=== PATIENT | female | born 1995 | race African-American/Black ===

== ENCOUNTER 2024-06-05 18:10 | Emergency (ER) | payer MEDICAID, SELFPAY ==
[2024-06-05 19:09] VITALS: BP 153/88; PULSE 98; RESP 20; TEMP 36.9; O2SAT 100; BMI 31.1
--- NOTE | 2024-06-05 19:32 | EDNOTE_ITS ---
ED Dental RME/HPI General Chief complaint: Dental/Oral/Throat Stated complaint: TOOTHACHE ON UPPER LEFT SIDE Time Seen by Provider: 06/05/24 19:16 Source: patient Arrival date/time: 06/05/24 18:10 29-year-old female presents emergency department complaining of infected tooth that is been ongoing for 2 weeks. Patient denies any fever, chills, cough, sore throat, earache, or any other associated symptom. Mode of arrival: ambulatory Limitations: no limitations Related Data Previous Rx's ?Medication ?Instructions ?Recorded amoxicillin 875 mg-potassium 1 tab PO BID 7 days #14 tabs 06/05/24 clavulanate 125 mg tablet ibuprofen 600 mg tablet 600 mg PO Q8H PRN pain #20 tabs 06/05/24 Allergies Allergy/AdvReac Type Severity Reaction Status Date / Time No Known Allergies Allergy Verified 06/05/24 18:13 Review of Systems Review of Systems Systems Reviewed: All systems reviewed, normal except as documented Constitutional Constitutional: Reports system reviewed and no additional complaints, except as documented, Denies body ache(s), Denies chills and Denies fever(s) Eyes Eyes: Reports system reviewed and no additional complaints, except as documented and Denies change in vision ENT Ears, Nose, Mouth, and Throat: Reports system reviewed and no additional complaints, except as documented, Denies disequilibrium, Denies dizziness, Denies sore throat, Denies vertigo and Reports other (Tooth pain) Cardiovascular Cardiovascular: Reports system reviewed and no additional complaints, except as documented, Denies chest pain and Denies dyspnea Respiratory Respiratory: Reports system reviewed and no additional complaints, except as documented, Denies chest congestion, Denies cough and Denies dyspnea Gastrointestinal Gastrointestinal: Reports system reviewed and no additional complaints, except as documented, Denies abdominal pain, Denies nausea and Denies vomiting Musculoskeletal Musculoskeletal: Reports system reviewed and no additional complaints, except as documented, Denies abnormal gait and Denies arthralgias Integumentary/Breasts Skin/Breast: Reports system reviewed and no additional complaints, except as documented, Denies erythema, Denies rash and Denies wounds Neurologic Neurologic: Reports system reviewed and no additional complaints, except as documented, Denies abnormal gait, Denies disequilibrium, Denies dizziness and Denies vertigo Past Medical History Past Medical History CARDIAC: Negative Cardiac Disorders or Congestive Heart Failure RESPIRATORY: Negative Chronic Obstructive Pulmonary Disease (COPD) or Asthma GENITOURINARY: Negative Renal Disease REPRODUCTIVE: Positive Previous Pregnancies ENDOCRINE: Negative Diabetes Mellitus Type 1 or Diabetes Mellitus Type 2 HEMATOLOGIC: Positive Anemia; Negative Sickle Cell Disease PSYCHO/SOCIAL: Positive Psychiatric Problems Family History FAMILY HISTORY: Positive Family Cardiac Disorders and Family Cancer; Negative Family Respiratory Disorders Surgical History SURGICAL: Negative Section Social History SMOKING STATUS: Current every day smoker SUBSTANCE USE: marijuana (vape) ED Exam General Limitations: Present no limitations General appearance: Present alert and in no apparent distress Head Head exam: Present atraumatic Eye Eye exam: Present normal appearance, PERRL and EOMI ENT ENT exam: Present normal exam, normal oropharynx and mucous membranes moist Expanded ENT Exam Teeth exam: Present dental caries and gingival swelling Neck Neck exam: Present normal inspection, full ROM and trachea midline Chest Chest inspection: Present normal inspection and symmetric chest wall rise Respiratory Respiratory exam: Present normal lung sounds bilaterally Cardiovascular Cardiovascular exam: Present regular rate, normal rhythm and normal heart sounds Abdominal Exam Abdominal exam: Present soft and normal bowel sounds Extremities Exam Extremities exam: Present normal inspection and full ROM Back Exam Back exam: Present normal inspection and full ROM Neurological Exam Neurological exam: Present alert, oriented X3 and CN II-XII intact Psychiatric Psychiatric exam: Present normal affect and normal mood Skin Skin exam: Present warm, dry, intact and normal color Course Quality Measures none Orders Category Date Time Status Amoxicillin/Pot Clav 875 [Augmentin 875] Med 06/05/24 19:34 Discontinued 1 tab PO X1 ONE Vital Signs Vital signs: Vital Signs Temperature 98.5 F 06/05/24 19:09 Pulse Rate 98 06/05/24 19:09 Respiratory Rate 20 06/05/24 19:09 Blood Pressure 153/88 H 06/05/24 19:09 Pulse Oximetry (%) 100 06/05/24 19:09 Oxygen Delivery Method Room Air 06/05/24 19:09 100% room air within normal limits Dental / Oral MDM Narrative MDM Narrative:: 29-year-old female presents emergency department complaining of infected tooth that is been ongoing for 2 weeks. Patient denies any fever, chills, cough, sore throat, earache, or any other associated symptom. ENT exam dental care with localized gingival swelling left lateral upper tooth. Oropharynx no erythema or tonsillomegaly observed. Patient appears nontoxic and hemodynamic stable. Patient discharged on oral Augmentin and instructed to follow-up with dentist upon discharge. Patient data External records reviewed:: [facility] previous records Clinical information provided by:: patient Social determinants that could affect healthcare access:: none Patient has the following chronic illnesses:: None How is presenting disease/condition affected by chronic disease/condition?: no chronic disease Evaluation data The following diagnostics were reviewed and interpreted by me:: other (specify) (N/A) Lab and/or radiology exams considered but not ordered:: N/A Interpretation Summary: N/A Medications / Prescriptions Medications or Prescriptions considered but not ordered:: Ordered Medication administrations:: Medication Administration History Discontinued Medications Amoxicillin/Clavulanate Potassium (Amoxicillin/Pot Clav 875 Tablet) 1 tab PO X1 ONE Stop: 06/05/24 19:35 Last Admin: 06/05/24 19:39 Dose: 1 tab Documented By: SCAR Comments: unable to scan Given Consultations Consultation(s) initiated? (list below): No Diagnosis Dental Differential Diagnosis: gingival abscess, dental caries, toothache, dental abscess and fracture of tooth Most likely diagnosis given after review of the tests above:: Infected tooth Admission Indicated Admission indicated?: not indicated Admission Request Was there a request for admission?: No Disposition Plan Disposition Plan: Discharge Discharge Attestation Discharge Attestation: The patient and all family members were given an opportunity to ask questions and understood the discharge instructions. Discharge instructions specifically effects, indications for sooner follow up or return to the emergency department, and the expected course of current diagnosis. Patient condition: Stable Discharge Plan Plan Patient Disposition: HOME (Self Care) Disposition Comment: Stable Prescriptions/Referrals Prescriptions/Med Rec: New amoxicillin-pot clavulanate 875-125 mg tablet 1 tab PO BID 7 Days Qty: 14 0RF ibuprofen 600 mg tablet 600 mg PO Q8H PRN (Reason: pain) Qty: 20 0RF Problem List Clinical Impression: Infected tooth Patient/Caregiver Discharge Instructions Discharge Activity: activity as tolerated Education Materials: ED Tooth Abscess Additional Instructions: Take medication as prescribed. Take Tylenol or ibuprofen as needed for pain. Follow-up with dentist in 24 to 48 hours. Return to emergency department for any worsening symptoms or as needed. Print Language: [place] Stand Alone Forms: Kelli Award Info., Patient Portal Info Letter PA/JOANNA Supervising Physician MAEVE/JOANNA Supervising Physician: Dr. Reid
[2024-06-05] MEDS: AMOXICILLIN/POT CLAV 875 TABLET 1 TAB PO (19:39)
== END 2024-06-05 19:46 | disposition home or self-care (01) ==
LOC: SERX 19:44
PROVIDERS: Emergency Provider Emergency Medicine
DX: K04.7 Periapical abscess without sinus (principal)
CPT/HCPCS: 99282; A9270

== ENCOUNTER 2024-07-07 01:48 | Emergency (ER) | payer MEDICAID, SELFPAY ==
[2024-07-07 01:48] VITALS: BMI 31.3
--- NOTE | 2024-07-07 01:57 | EDNOTE_ITS ---
Upper Respiratory Inf. RME/HPI General Chief Complaint: Flu Like Symptoms Stated Complaint: FLU/ CONGESTION Time Seen by Provider: 07/07/24 01:52 Source: patient, RN notes reviewed and old records reviewed Arrival date/time: 07/07/24 01:48 Mode of arrival: ambulatory Limitations: no limitations RME / HPI RME / HPI Narrative: 29yof presents to ED for congestion, cough and body aches that initiated yesterday. Son currently has similar symptoms. No fever, shortness of breath, chest pain, nausea/vomiting or dizziness reported. 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 Previous Rx's ?Medication ?Instructions ?Recorded ibuprofen 600 mg tablet 600 mg PO Q8H PRN pain #20 tabs 06/05/24 benzonatate 200 mg capsule 200 mg PO TID PRN cough #30 caps 07/07/24 dextromethorphan-guaifenesin ER 60 1 tab PO Q12H PRN congestion/cough 07/07/24 mg-1,200 mg tab,extend #30 tabs release,12hr (Mucinex DM) fluticasone propionate 50 2 spray intranasal QDAY PRN nasal 07/07/24 mcg/actuation nasal congestion #16 grams spray,suspension (Flonase Allergy Relief) ibuprofen 600 mg tablet 600 mg PO Q6H PRN fever or pain 07/07/24 #30 tabs Allergies Allergy/AdvReac Type Severity Reaction Status Date / Time No Known Allergies Allergy Verified 06/05/24 18:13 Review of Systems Review of Systems Systems Reviewed: All systems reviewed, normal except as documented Constitutional Constitutional: Denies chills and Denies fever(s) ENT Ears, Nose, Mouth, and Throat: Denies dizziness and Reports nasal congestion Cardiovascular Cardiovascular: Denies chest pain and Denies dyspnea Respiratory Respiratory: Reports cough and Denies dyspnea Gastrointestinal Gastrointestinal: Denies nausea and Denies vomiting Musculoskeletal Musculoskeletal: Reports myalgias Neurologic Neurologic: Denies dizziness Past Medical History Past Medical History GASTROINTESTINAL: Positive Obesity Surgical History OTHER SURGICAL HX: Unilateral fallopian tube removal for ectopic in 2016. Social History SMOKING STATUS: Current some day smoker SUBSTANCE USE: does not use ALCOHOL: Never ED Exam General Limitations: Present no limitations General appearance: Present alert and in no apparent distress Head Head exam: Present atraumatic and normocephalic Eye Eye exam: Present normal appearance, PERRL and EOMI ENT ENT exam: Present normal oropharynx, mucous membranes moist, TM's normal bilaterally and other (Mild UAC) Neck Neck exam: Present normal inspection and full ROM Chest Chest inspection: Present normal inspection and symmetric chest wall rise Respiratory Respiratory exam: Present normal lung sounds bilaterally; Absent respiratory distress Cardiovascular Cardiovascular exam: Present regular rate and normal rhythm Extremities Exam Extremities exam: Present normal inspection and full ROM Neurological Exam Neurological exam: Present alert and oriented X3 Psychiatric Psychiatric exam: Present normal affect and normal mood Skin Skin exam: Present warm, dry, intact and normal color Course Quality Measures none Orders Category Date Time Status Bedside COVID-19 Antigen Test NOW Care 07/07/24 02:07 Completed Bedside Influenza A&B Antigen Test NOW Care 07/07/24 02:07 Completed Vital Signs Vital signs: Vital Signs Temperature 98.4 F 07/07/24 02:05 Pulse Rate 94 07/07/24 02:05 Respiratory Rate 17 07/07/24 02:05 Blood Pressure 137/91 H 07/07/24 02:05 Pulse Oximetry (%) 98 07/07/24 02:05 Oxygen Delivery Method Room Air 07/07/24 02:05 Upper Respiratory Infection MDM Narrative MDM Narrative:: 29yof presents to ED for congestion, cough and body aches that initiated yesterday. Son currently has similar symptoms. No fever, shortness of breath, chest pain, nausea/vomiting or dizziness reported. 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 Patient is nontoxic-appearing, afebrile, vitals are stable. No evidence respiratory distress or hypoxia. Suspect viral etiology of symptoms. Encourage rest, fluids, symptomatic treatment, fever management prn. Stable for discharge, RTED precautions given Patient data External records reviewed:: [facility] previous records (06/05/2024 ED visit for tooth infection) Clinical information provided by:: patient Social determinants that could affect healthcare access:: other (specify) (Poor access to healthcare) Patient has the following chronic illnesses:: Obesity How is presenting disease/condition affected by chronic disease/condition?: uneffected by Evaluation data The following diagnostics were reviewed and interpreted by me:: lab results Lab and/or radiology exams considered but not ordered:: CXR: Lungs clear, no respiratory distress or hypoxia Interpretation Summary: Negative COVID/flu Medications / Prescriptions Medications or Prescriptions considered but not ordered:: No antibiotics or antivirals recommended at this time Medication administrations:: None Consultations Consultation(s) initiated? (list below): No Diagnosis Upper Respiratory Differential Diagnosis: other (URI, viral illness, COVID, flu, bronchitis, pneumonia) Most likely diagnosis given after review of the tests above:: URI Admission Indicated Admission indicated?: not indicated Admission Request Was there a request for admission?: No Disposition Plan Disposition Plan: Discharge Discharge Attestation Discharge Attestation: The patient and all family members were given an opportunity to ask questions and understood the discharge instructions. Discharge instructions specifically effects, indications for sooner follow up or return to the emergency department, and the expected course of current diagnosis. Patient condition: Stable Discharge Plan Plan Patient Disposition: HOME (Self Care) Patient condition on transfer: Stable Prescriptions/Referrals Prescriptions/Med Rec: New ibuprofen 600 mg tablet 600 mg PO Q6H PRN (Reason: fever or pain) Qty: 30 0RF dextromethorphan-guaifenesin [Mucinex DM] 60-1,200 mg tablet extended release 12 hr 1 tab PO Q12H PRN (Reason: congestion/cough) Qty: 30 0RF fluticasone propionate [Flonase Allergy Relief] 50 mcg/actuation spray,suspension 2 spray intranasal QDAY PRN (Reason: nasal congestion) Qty: 16 0RF Rx Instructions: administer into each nostril benzonatate 200 mg capsule 200 mg PO TID PRN (Reason: cough) Qty: 30 0RF No Action ibuprofen 600 mg tablet 600 mg PO Q8H PRN (Reason: pain) Qty: 20 0RF Referrals: Temporary Provider,ED [Physician] - In 1 week Problem List Clinical Impression: URI (upper respiratory infection), Viral illness Patient/Caregiver Discharge Instructions Education Materials: ED URI, Viral, No Abx (Adult) Print Language: Emir[place] Stand Alone Forms: Kelli Award Info., Patient Portal Info Letter PA/COMMUNITY DEVELOPMENT SPECIALIST Supervising Physician PA/COMMUNITY DEVELOPMENT SPECIALIST Supervising Physician: Asa
[2024-07-07 02:05] VITALS: BP 137/91; PULSE 94; RESP 17; TEMP 36.9; O2SAT 98
== END 2024-07-07 03:59 | disposition home or self-care (01) ==
PROVIDERS: Emergency Provider Emergency Medicine
DX: J06.9 Acute upper respiratory infection, unspecified (principal)
CPT/HCPCS: 99283

== ENCOUNTER 2024-08-03 20:16 | Emergency (ER) | payer MEDICAID, SELFPAY ==
[2024-08-03 20:17] VITALS: BMI 31.6
[2024-08-03 21:15] VITALS: BP 143/87; PULSE 90; RESP 18; TEMP 37.1; O2SAT 99
--- NOTE | 2024-08-03 21:26 | EDNOTE_ITS ---
ED Ear RME/HPI General Chief complaint: Ear Stated complaint: RIGHT EAR PAIN Time Seen by Provider: 08/03/24 21:23 Arrival date/time: 08/03/24 20:16 29F with no significant PMH presents to ED with several days of R ear pain. Limitations: no limitations Related Data Previous Rx's ?Medication ?Instructions ?Recorded ibuprofen 600 mg tablet 600 mg PO Q8H PRN pain #20 t abs 06/05/24 benzonatate 200 mg capsule 200 mg PO TID PRN cough #30 caps 07/07/24 dextromethorphan-guaifenesin ER 60 1 tab PO Q12H PRN c ongestion/cough 07/07/24 mg-1,200 mg tab,extend #30 tabs release,12hr (Mucinex DM) fluticasone propionate 50 2 spray intranasal QDAY PRN nasal 07/07/24 mcg/actuation nasal congestion #16 grams spray,suspension (Flonase Allergy Relief) ibuprofen 600 mg tablet 600 mg PO Q6H PRN fever or p ain 07/07/24 #30 tabs [id number] 3.5 4 drp otic (ear) QID 10 days #10 mL 08/03/24 mg-10,000 unit/mL-1 % ear drops,susp Allergies Allergy/AdvReac Type Severity Reaction Status Date / Time No Known Allergies Allergy Verified 08/03/24 20:17 Review of Systems Review of Systems Systems Reviewed: All systems reviewed, normal except as documented Constitutional Constitutional: Reports system reviewed and no additional complaints, except as documented, Denies fever(s) and Denies headache(s) ENT Ears, Nose, Mouth, and Throat: Reports as per HPI, Denies disequilibrium, Reports otalgia and Denies headache(s) Cardiovascular Cardiovascular: Reports system reviewed and no additional complaints, except as documented, Denies chest pain and Denies dyspnea Respiratory Respiratory: Reports system reviewed and no additional complaints, except as documented, Denies cough and Denies dyspnea Gastrointestinal Gastrointestinal: Reports system reviewed and no additional complaints, except as documented, Denies abdominal pain, Denies nausea and Denies vomiting Neurologic Neurologic: Reports system reviewed and no additional complaints, except as documented, Denies confusion, Denies disequilibrium and Denies headache(s) Psychiatric Psychiatric: Denies confusion Past Medical History Past Medical History CARDIAC: Negative Cardiac Disorders or Congestive Heart Failure RESPIRATORY: Negative Chronic Obstructive Pulmonary Disease (COPD) or Asthma GASTROINTESTINAL: Positive Obesity GENITOURINARY: Negative Renal Disease REPRODUCTIVE: Positive Previous Pregnancies ENDOCRINE: Negative Diabetes Mellitus Type 1 or Diabetes Mellitus Type 2 HEMATOLOGIC: Positive Anemia; Negative Sickle Cell Disease PSYCHO/SOCIAL: Positive Psychiatric Problems Family History FAMILY HISTORY: Positive Family Cardiac Disorders and Family Cancer; Negative Family Respiratory Disorders Surgical History SURGICAL: Negative Section Social History SMOKING STATUS: Current every day smoker SUBSTANCE USE: does not use ED Exam General Limitations: Present no limitations General appearance: Present alert and in no apparent distress Head Head exam: Present atraumatic Eye Eye exam: Present normal appearance, PERRL and EOMI ENT ENT exam: Present normal oropharynx and mucous membranes moist Expanded ENT Exam External ear exam: Present external tenderness (R tragal) TM/Canal exam: Right TM: canal discharge and canal tenderness Neck Neck exam: Present normal inspection, full ROM and trachea midline Chest Chest inspection: Present normal inspection and symmetric chest wall rise Respiratory Respiratory exam: Present normal lung sounds bilaterally Cardiovascular Cardiovascular exam: Present regular rate, normal rhythm and normal heart sounds Abdominal Exam Abdominal exam: Present soft and normal bowel sounds Extremities Exam Extremities exam: Present normal inspection and full ROM Back Exam Back exam: Present normal inspection and full ROM Neurological Exam Neurological exam: Present alert, oriented X3 and CN II-XII intact Psychiatric Psychiatric exam: Present normal affect and normal mood Skin Skin exam: Present warm, dry, intact and normal color Course Quality Measures none Vital Signs Vital signs: Vital Signs Temperature 98.8 F 08/03/24 21:15 Pulse Rate 90 08/03/24 21:15 Respiratory Rate 18 08/03/24 21:15 Blood Pressure 143/87 H 08/03/24 21:15 Pulse Oximetry (%) 99 08/03/24 21:15 Oxygen Delivery Method Room Air 08/03/24 21:15 O2 at 99% on RA and WNLs Ear MDM Narrative MDM Narrative:: 29F with no significant PMH presents to ED with several days of R ear pain. Physical exam reveals R tragal tenderness, as well as canal swelling and discharge. L ear exam normal. Patient is afebrile, calm, and alert. Likely OE. Patient data External records reviewed:: [facility] previous records Clinical information provided by:: patient Social determinants that could affect healthcare access:: none Patient has the following chronic illnesses:: none How is presenting disease/condition affected by chronic disease/condition?: no chronic disease Evaluation data The following diagnostics were reviewed and interpreted by me:: other (specify) (none) Lab and/or radiology exams considered but not ordered:: not ordered Interpretation Summary: n/a Medications / Prescriptions Medications or Prescriptions considered but not ordered:: not ordered Medication administrations:: n/a Consultations Consultation(s) initiated? (list below): No Diagnosis Ear Differential Diagnosis: otitis externa, otitis media, foreign body in ear, ruptured TM and cerumen impaction Most likely diagnosis given after review of the tests above:: OE Admission Indicated Admission indicated?: not indicated Admission Request Was there a request for admission?: No Disposition Plan Disposition Plan: Discharge Discharge Attestation Discharge Attestation: The patient and all family members were given an opportunity to ask questions and understood the discharge instructions. Discharge instructions specifically effects, indications for sooner follow up or return to the emergency department, and the expected course of current diagnosis. Patient condition: Stable Discharge Plan Plan Patient Disposition: HOME (Self Care) Disposition Comment: Stable Prescriptions/Referrals Prescriptions/Med Rec: New ecucgbmm-vspjzhkbx-XF 3.5-10,000-1 mg/mL-unit/mL-% drops,suspension 4 drp otic (ear) QID 10 Days Qty: 10 0RF No Action ibuprofen 600 mg tablet 600 mg PO Q8H PRN (Reason: pain) Qty: 20 0RF ibuprofen 600 mg tablet 600 mg PO Q6H PRN (Reason: fever or pain) Qty: 30 0RF dextromethorphan-guaifenesin [Mucinex DM] 60-1,200 mg tablet extended release 12 hr 1 tab PO Q12H PRN (Reason: congestion/cough) Qty: 30 0RF fluticasone propionate [Flonase Allergy Relief] 50 mcg/actuation spray,suspension 2 spray intranasal QDAY PRN (Reason: nasal congestion) Qty: 16 0RF Rx Instructions: administer into each nostril benzonatate 200 mg capsule 200 mg PO TID PRN (Reason: cough) Qty: 30 0RF Problem List Clinical Impression: Otitis externa Patient/Caregiver Discharge Instructions Education Materials: ED External Ear Infection (Adult) Additional Instructions: Please follow-up with PCP within 24-48 hours and return immediately if symptoms worsen. Keep drops in ear at least 1 min each time. Print Language: Portuguese Stand Alone Forms: Patient Portal Info Letter PA/TRAIN OPERATIONS SUPERVISOR Supervising Physician PA/TRAIN OPERATIONS SUPERVISOR Supervising Physician: Dr. Bland
== END 2024-08-03 21:55 | disposition home or self-care (01) ==
LOC: SERX 21:29
PROVIDERS: Emergency Provider Emergency Medicine
DX: H60.91 Unspecified otitis externa, right ear (principal); F17.290 Nicotine dependence, other tobacco product, uncomplicated
CPT/HCPCS: 99281